=== PATIENT | female | born 1950 | race Caucasian/White ===

== ENCOUNTER → 2016-11-15 | Outpatient (CLI) | payer MEDICARE, OTHER ==
[~2016-11-15] MED LIST: AMITRYPTYLINE; AMITRYPTYLINE PO; ASPIRIN81 M2 PO; ATENOLOL PO; CALCIUM1 TAB.CHEW PO; CARAFATE1 GM PO; CELEXA PO; CIPRO PO; CRESTOR; CYMBALTA; FEMHRT 1/5 TABL1 TAB; FLAGYL PO; HYDROCODONE-APA1 T30 PO; IMODIUM2 MG PO; KEFLEX PO; LEVAQUIN PO; LORTAB 10/500 T1 TAB PO; MACROBID100 MG PO; MACRODANTIN50 MG PO; MIRALAX255 GM; MOBIC PO; NORCO 10/325 TA1 TAB; NORCO 5/325 TAB1 TAB PO; NORCO 7.5/325 T1 TAB PO; PERCOCET10; PHENERGAN25 MG PO; PROTONIX PO; SURMONTIL; SYNTHROID; SYNTHROID PO; TENORMIN50 MG PO; TOPROL XL; VITAMIN D2000 UNI1 PO; ZOCOR PO; ZOCOR5 MG; ZOFRAN; ZOFRAN PO; ZOFRANODT SL; [UNRECOGNIZED DRUG - OTHER]; [UNRECOGNIZED DRUG - OTHER]
--- NOTE | ~2016-11-15 | MY30 ---
[facility] A Service of [facility] RADIOLOGY TEXT RESULTS PATIENT: JESUS ALBERTO BEAL LOCATION: [facility] : 52 UNIT #: [id number] AGE: [address]: Aleksandar Marlow MD SEX: F ORDER DR: [id number] [address] [address] [id number] O MR#: [id number] #: [id number] NAME: JESUS ALBERTO BEAL : 1950 SEX: F STUDY DATE/TIME: 11/15/2016 10:26 UNIT: [facility] ROOM: STUDY DESCRIPTION: MY SCREEN GENARO BILAT DIGITAL Attending Physician: Aleksandar Marlow M.D. Referring Physician: Aleksandar Marlow M.D. Ordering Physician: Aleksandar Marlow M.D. Primary Care Physician: Aleksandar Marlow M.D. MEDICAL IMAGING REPORT This report is preliminary unless electronic signature is present. EXAMINATION Bilateral digital screening mammogram with CAD. DATE 11/15/2016 HISTORY 66-year-old female with history of bilateral breast reduction 1997. Family history of breast cancer in mother diagnosed at the age of 75. No personal history of breast cancer or current complaints. COMPARISON Bilateral screening mammogram 10/23/2015, 07/19/2014, 03/08/2013. FINDINGS CC and MLO views were obtained of each breast utilizing digital technique. Anterior compression views were obtained of the right breast in the CC view left breast in the MLO view. Study was reviewed with an FDA-approved CAD device. Scattered fibroglandular densities are present bilaterally. A round marker was placed over the right breast denoting a skin lesion. Subareolar skin thickening and subareolar curvilinear architectural distortion features are unchanged from prior examinations, likely related to the patient's history of reduction mammoplasty. No suspicious nodule, architectural distortion or microcalcification. IMPRESSION 1. BIRADS 2. Benign findings. Routine bilateral screening mammogram is recommended in one year. Patients over the age of 40 are entered into a reminder system with target due date for the next mammogram. A result letter will also be sent to the [facility] A Service of [facility] RADIOLOGY TEXT RESULTS PATIENT: JESUS ALBERTO BEAL LOCATION: [facility] : 52 UNIT #: [id number] AGE: [address]: Aleksandar Marlow MD SEX: F ORDER DR: patient. BIRADS: 2 Benign findings. Dictated by... Brynn Sher M.D. THIS IS AN ELECTRONICALLY VERIFIED REPORT Brynn Sher M.D. at 11/21/2016 8:37 AM LIU/luzmaria TD: 11/15/2016 16:38 JOB #: [id number] MEDICAL IMAGING REPORT Page 1 of 1
== END | disposition home or self-care (01) ==
LOC: SMAM 09:45
DX: Z12.31 Encounter for screening mammogram for malignant neoplasm of breast (principal); Z98.890 Other specified postprocedural states; Z80.3 Family history of malignant neoplasm of breast
CPT/HCPCS: G0202